=== PATIENT | male | born 1955 | race Caucasian/White ===

== ENCOUNTER → 2019-06-13 | Outpatient (CLI) | payer MEDICARE, OTHER, SELFPAY ==
[2013-05-30 17:30] VITALS: BMI 25.1
[2019-06-13 09:47] LABS: AUTO B FLUID DILUENT BKGD CT WBC <0.1 RBC <0.01 (W<.1,R<.01); Color / Synovial Fluid Yellow (Pale Yellow); Source / Synovial Fluid L KNEE; Viscosity / Synovial Fluid Sl. Viscous (HIGH)
[2019-06-13 09:48] LABS: Appearance /Synovial Fluid Sl Cl (CLEAR); RBC /Synovial Fluid 0.003 10^6/uL (0); Synovial Fld Mononuclear WBC # 0.575 10^3/ul; Synovial Fld Mononuclear WBC % 89.2 %; Synovial Fld Polynuclear WBC % 10.8 %
[2019-06-13 10:31] LABS: Lymph 38 %; Monocyte /Synovial Fluid 50 %; Neutrophil 11 % (0-25); Other Cell /Synovial Fluid 1 %
[2019-06-13 10:33] LABS: Body Fluid QC Type(s) BF1Q
[2019-06-14 12:20] LABS: Pathologist Comment Reviewed
== END | disposition home or self-care (01) ==
PROVIDERS: Family Provider Internal Medicine; PCP Internal Medicine; Referring Provider Specialist; Visit Provider Specialist
DX: Z96.652 Presence of left artificial knee joint (principal)
CPT/HCPCS: 87015; 87070; 87075; 87101; 87116; 87205; 87206; 89050; 89051

== ENCOUNTER 2019-07-24 08:07 | Inpatient (IN) | payer MEDICARE, OTHER, SELFPAY ==
[2019-07-05 11:09] VITALS: BP 137/90; PULSE 61; RESP 16; TEMP 36.2; O2SAT 99; BMI 25.0
--- NOTE | 2019-07-05 11:31 | SDCEKG_ITS ---
Test Reason : Blood Pressure : / mmHG Vent. Rate : 057 BPM Atrial Rate : 057 BPM P-R Int : 198 ms QRS Dur : 082 ms QT Int : 414 ms P-R-T Axes : 070 040 043 degrees QTc Int : 402 ms Sinus bradycardia Otherwise normal ECG Confirmed by CINTIA SANTORO, JAYNA ([id number]), website/blog editor JUAN HEATH ([id number]) on 07/08/2019 12:11:15 PM Referred By: Jeison Petit Confirmed By:JAYNA CHAMBERLAIN MD
[2019-07-05 11:42] LABS: Absolute Lymphocyte Count 0.99 X10^3/uL (0.83-4.51); Basophil# 0.03 X10^3/uL; Basophil% 0.4 % (0-1); Eosinophils% 2.9 % (0-5); Hematocrit 42.4 % (40-54); Hemoglobin 13.6 g/dL (13.0-16.5); Lymphocyte # 0.99 X10^3/ul (4.0); Lymphocyte % 14.5 % (19-41); Mean Corp Hgb Conc 32.1 g/dL (32-36); Mean Corpuscular Hgb 28.2 pg (27.0-32.0); Mean Corpuscular Volume 87.8 fL (80-94); Monocyte# 0.62 X10^3/uL; Monocyte% 9.1 % (0-10); NRBC Flagged by Analyzer 0 % (0-5); Neutrophil # 4.99 X10^3/uL (2.7-7.7); Neutrophil % 72.8 % (47-70); Platelet Count 240 K/mm3 (150-450); RBC Distribution Width CV 12.7 % (11.6-14.6); RBC Distribution Width SD 40.6 fl (35.1-43.9); Red Blood Count 4.83 M/mm3 (4.6-6.2); White Blood Count 6.9 K/mm3 (4.4-11.0)
[2019-07-05 12:12] LABS: Anion Gap 5 (5-15); BUN 16 mg/dL (7-18); BUN/Creat Ratio 17.8 RATIO (10-20); Calcium,Total 9.6 mg/dL (8.5-10.1); Chloride 107 mmol/L (98-107); EST Glomerular Filtration Rate 90 mL/min (>60); Est Glom Filt Rate - Afr Amer 108 mL/min (>60); Estimated Creatinine Clearance 88.62 ml/min; Glucose 92 mg/dL (74-106); Potassium 4.1 mmol/L (3.5-5.1); Sodium Level 139 mmol/L (136-145)
--- NOTE | 2019-07-05 13:10 | PCM.HP.BLA ---
History and Physical History and Physical [facility] Patient Name: Tim Frost : 1955 From: YESIKA ANGULO PA-C DATE OF SURGERY: 07/24/2019 SCHEDULED PROCEDURE: left knee polyethylene exchange HISTORY OF PRESENT ILLNESS: Preoperative history and physical exam was performed on July 05, 2019. This is a 64-year-old male who presents today for continued pain and preop visit. Patient has had a previous left total knee arthroplasty by Dr. Lázaro Moreno on November 19, 2018. He underwent a manipulation under anesthesia on February 11, 2019. Patient continues to complain of pain and stiffness in the left knee. He has continued to have a large amount of swelling. Patient denies any trauma or injury. Patient did have an aspiration which was negative for infection. After failing conservative measures and discussing treatment options with Dr. Jeison Petit, the patient does wish to proceed with a left knee revision polyethylene exchange with scar excision. Patient denies chest pain, shortness of breath, fevers chills, recent infections. He does have a medical history pertinent for previous heart attack in 2010 in which he underwent 2 stents. We are obtaining surgical clearance from the trestle mainternance laborer Dr. Hampton and primary care physician Dr. Tate. She also has underlying hypertension. REVIEW OF SYSTEMS: ROS: Const: Denies anorexia, anxiety, change in appetite, fever, difficulty sleeping, weight change. CV: Denies chest pain, heart murmur, irregular heartbeat and peripheral vascular disease. Resp: Denies asthma, cough, pneumonia, sleep apnea, shortness of breath, tuberculosis and wheezing. GI: Denies constipation, diarrhea, heartburn, nausea, rectal itching, bloody stools and vomiting. : Denies incontinence. Musculo: Reports pain and trouble walking, but denies leg swelling and weakness. Skin: Denies Raynaud's, history of shingles and tattoo. Neuro: Denies ambulatory dysfunction, dizziness, numbness/tingling and tremor. Psych: Denies anxiety, depression, insomnia, mental illness and stress. Harjinder/Lymph: Denies anemia, bleeding/bruising tendency and past transfusion. Reviewed, no changes. PAST MEDICAL HISTORY: Advance Care Plan: No Advance Directives Effective Date: 04/24/2018 PMH: Medical Problems: Hypercholesterolemia, High Blood Pressure, Heart Attack, Arthritis Accidents: Sports Related Injury - Dislocated R ankle Surgical Hx: Carpal Tunnel Release LT - 10/17/08 [facility] JAYJAY RT CTR - (04/10/2009) DR MORENO [facility] Knee Arthroscopy LT, Knee Arthroscopy RT LT TKR - (11/19/2018) JAYJAY @ [facility] LT Knee Manipulation - (02/11/2019) JAYJAY @ [facility] Anesthesia Complications: None Assistive Devices: Glasses Reviewed, no changes. SOCIAL HISTORY: SH: Marital: .Occupation: Retired.Work Status: Retired.Hand Dominance: Right-handed. Personal Habits: Smoking: Patient has never smoked.Cigarette Use: Never.Smokeless Tobacco: Never Used Smokeless Tobacco.E-Cigarette Use: Never used.Alcohol: Occasionally.Drug Use: Denies Use.Enjoy Exercising: Daily. Reviewed, no changes. VITALS: Ht: 72 Wt: 185lb Wt [id number] BMI: 25.1 BP: 131/82 Pulse: 64 Resp: 18 T: 96.7 T: 35.9C ALLERGIES: No Known Drug Allergy MEDICATIONS: Metoprolol Succinate ER 25 mg 1/2 tab PO daily, Simvastatin 20 mg 1/2 tab PO daily, Aspirin 81 Low Dose 81 mg 1po bid, Omeprazole 40 mg 1po qday, Lisinopril 5 mg 1 by mouth every day PRE-OP EXAM: General appearance:NORMAL Other: Eyes: Conjunctivae and lids: NORMAL Pupils: ERR Ears, Nose, Mouth, and Throat: NORMAL Other: Inspection of lips, teeth and gums: NORMAL Other: Neck: Examination of neck: no masses noted. Respiratory: Assessment of respiratory effort: NORMAL Other: Auscultation of lungs: clear to auscultation no wheezes, rhonchi or rales. Cardiovascular: Auscultation of heart: regular rate and rhythm, no murmurs, gallops or rubs. Exam of carotid arteries: NORMAL Other: Gastrointestinal: Exam of abdomen: soft, nontender, nondistended bowel sounds present. PHYSICAL EXAMINATION: Patient walks with an antalgic gait. Left knee previous incision is well healed without erythema or signs of infection. Patient has diffuse tenderness to palpation throughout the left knee. Range of motion left knee: 10 extension to 100 flexion. Stable to varus and valgus stress with 1 mm laxity on stress testing at 30 flexion both medially and laterally. Minimal anterior translation with anterior drawer testing. Moderate effusion. IMAGING STUDIES: Previous aspiration was negative for infection IMPRESSION: 1. Painful left total knee arthroplasty 2. Hypertension 3. Previous heart attack 2010 with heart stents 4. Hypercholesterolemia PLAN: Dr. Jeison Petit did discuss and review with the patient all treatment options including surgical versus nonsurgical options. Patient does wish to proceed with the above-stated procedure. Potential risks, benefits, and complications of the procedure were discussed in detail including but not limited to , infection, nerve and blood vessel damage, persistent pain, numbness, tingling, paresthesias, blood clot, pulmonary embolism, and requirement for possible further surgery. The patient expressed full understanding and has no further questions for the doctor. Patient does agree to proceed with the above-stated procedure and has signed the surgery consent form. This dictation was created using voice recognition software. Phonetic and/or grammatical errors may exist. ___ I have re-examined the patient. There are no clinical changes since date of exam. ___ See progress notes for changes. ___ Dictated on admission Date: Time: Signature:
[2019-07-24] VITALS (11 sets, daily range): BP systolic 106–137; BP diastolic 56–90; PULSE 60–88; RESP 16–18; TEMP 35.6–36.3; O2SAT 94–100; BMI 25.0
--- NOTE | 2019-07-24 07:20 | RAD_ITS ---
STUDY: X-RAY - LEFT KNEE REASON FOR EXAM: Postoperative total knee arthroplasty. TECHNIQUE: 2 view(s) of the knee. COMPARISON: None. FINDINGS: There is a left total knee arthroplasty without evidence of complication. There is postoperative gas in the soft tissues and overlying skin harshad. RAD/Knee 1 or 2 Views IMPRESSION: Uncomplicated total left knee arthroplasty. Electronically Signed: Marshal Sinha MD at 15:31 EST Tel , Service support ,
[2019-07-24] MEDS: Gabapentin 600 MG Tablet PO (08:15)
[2019-07-24 08:31] LABS: Bedside Glucose 85 mg/dL (70-110)
[2019-07-24] MEDS: Lactated Ringers 1,000 ML 100 ML IV (08:45)
[2019-07-24] MEDS: Celecoxib 200 MG Capsule 400 MG PO (08:46)
[2019-07-24] MEDS: Scopolamine 1mg/72hr Patch 1 PATCH TRANSDERM. (08:46)
[2019-07-24] MEDS: Acetaminophen 500 MG Tablet 1000 MG PO ×3 (08:46→22:06)
[2019-07-24] MEDS: Magnesium Sulfate 4gm/100mL 4 GM/100 ML IV.SOLN. IV (09:00)
[2019-07-24] MEDS: Cefazolin 2 GM in 0.9% Normal Saline 100 ML IV (12:07)
--- NOTE | 2019-07-24 12:35 | OP.PCM_ITS ---
Report of Operation Date of Procedure: 07/24/19 Pre-Operative Diagnosis: Painful left total knee, arthrofibrosis Post-Operative Diagnosis: Painful left total knee, arthrofibrosis Surgery/Procedure Performed:: Revision left total knee replacement, polyethylene exchange, complete synovectomy and quadricepsplasty. Description of Surgical Findings:: Stable knee. Knee flexion to was 125 intraoperatively. Patient does have some patella [place]. clay carman: Jduson Gonzalez Type of Anesthesia:: Spinal Anesthesiologist: Sivakumar Sutton Special Medications: 2 g Ancef after incision, joint cocktail (5 mg Duramorph, 30 mL of 0.5% Ropivicaine, 1000 units of epinephrine, 30 mg of Toradol). TXA lavage prior to closure. Specimen's removed: 3 separate specimens were sent to microbiology. Estimated Blood Loss (mL): 75 Fluids Replaced: 1200 mL crystalloid Description of Procedure: 64 yo M history of L TKA in 2018 presents with arthrofibrosis and pain. Reviewed options were discussed the patient. Based on patient's symptoms and loss of range of motion complete synovial debridement with polyethylene exchange is recommended. Risks and benefits of the procedure were discussed with the patient including but not limited to blood loss, DVTs, PEs, neurovascular damage, infection, general risk of anesthesia including loss of life. Demonstrated understanding and was able to sign informed consent. On the date of procedure patient's L lower extremity was marked in the preoperative area. The patient was then taken back to the operating room where the patient was placed on the table in the supine position. All bony prominences were identified a well-padded. Anesthesia assumed control of the C-spine and airway and remained controlled throughout the remainder of the procedure. A tourniquet was placed on the operative thigh and the leg was prepped in a sterile fashion. The surgeon then scrubbed at this time .Upon reentering the room left lower extremity was draped in a standard orthopedic fashion. A timeout was then called and everyone agreed upon the side, the site, the procedure to be performed, patient's identity and antibiotics given. A midline skin incision was made and sharp dissection was taken down through skin subcutaneous tissue and fat. Appropriate flaps were elevated medially and laterally. His arthrotomy was identified and the standard medial parapatellar incision was made and the patella was subluxed laterally. The standard deep MCL release was done. At this point an aggressive synovectomy commenced. At this point the knee was flexed up and he had limited range of motion. A Farmer was used to make a quadriceps plasty of the anterior femur. Once this was done we gained another 20 degrees of flexion. We continued with our aggressive synovectomy. Our attention was first turned towards the subpatellar pouch and all suspicious synovium and tissues were debrided. We then directed our attention towards medial lateral gutters were these tissues were aggressively debrided. Knee was then flexed up the polyethylene was removed. Once polyethylene was removed we did the remainder of the synovium in the medial and lateral gutters and along the lateral structures and MCL. We then debrided the posterior knee. Knee was flexed up and culture was taken from the femoral notch. And also there was a membrane beneath the tibial baseplate that was removed and sent for culture. He had completed our synovectomy and were happy with the joint. Once we are happy with this we then trialed the polyethylene components. Medially the size 6 fit well. Laterally we downsized to a be from the C. Tourniquet was let down and hemostasis was obtained. 6 L of normal saline were then irrigated throughout the wound with low-pressure lavage and the wound was once again explored. All remaining tissue that was suspicious was seen in the wound was once again irrigated with normal saline. The appropriate polyethylenes were then opened and put back into place after appropriate trialing. Once the final components were placed the wound was copiously irrigated with normal saline solution and chlorhexidine. TXA lavage was also performed. The wound was closed in a layer colunga fashion using #1 vicryl interrupted sutures for the arthrotomy, 2-0 interrupted Vicryl for the subcuticular layer and harshad for final skin closure. A sterile compressive dressing was then placed. The patient was then awakened from anesthesia, transferred to the [facility] and transferred to the PACU for recovery. Post op plan Range of motion as tolerated, activity as tolerated. Patient will be on doxycycline for 1 week as we follow cultures. Patient will be on Singulair for 90 days to help decrease scar tissue. Grafts/Implants Used: Conformis I total: Medial, 6 mm, lateral B - Complications No intraoperative complications - Admit VTE Documentation VTE Present on Admission: No VTE Mechan Device Prophylaxis: SCD's, Thigh High MAL Hose VTE Pharm Prophylaxis ordered?: Yes
[2019-07-24] MEDS: Lactated Ringers 1,000 ML 999 ML IV (13:12)
[2019-07-24] MEDS: Lactated Ringers 1,000 ML 125 ML IV ×2 (14:03→22:01)
[2019-07-24] MEDS: Montelukast 10 MG Tablet PO (16:41)
[2019-07-24] MEDS: Aspirin 81 MG TAB.CHEW PO (16:41)
[2019-07-24] MEDS: Ensure Surgery 237 ML LIQUID PO (16:41)
[2019-07-24] MEDS: Ketorolac 15 MG/ML Vial IV (20:35)
[2019-07-24] MEDS: Cefazolin 1 GM/50 ML BAG IV (20:35)
[2019-07-24] MEDS: Atorvastatin Calcium 10 MG Tablet 5 MG PO (22:05)
[2019-07-24] MEDS: Doxycycline 100 MG CAPSULE PO (22:05)
[2019-07-24] MEDS: Senna/Docusate Sodium 1 Tablet 2 TABLET PO (22:06)
[2019-07-24] MEDS: Lisinopril 5 MG Tablet PO (22:07)
[2019-07-25 00:30] VITALS: BP 108/66; PULSE 64; RESP 16; TEMP 36.4; O2SAT 94
[2019-07-25] MEDS: Ketorolac 15 MG/ML Vial IV (04:32)
[2019-07-25] MEDS: Cefazolin 1 GM/50 ML BAG IV (04:33)
[2019-07-25 04:38] VITALS: BP 115/69; PULSE 60; RESP 18; TEMP 36.4; O2SAT 95
[2019-07-25 05:50] LABS: Hematocrit 33.7 % (40-54); Hemoglobin 10.8 g/dL (13.0-16.5); Mean Corpuscular Hgb 27.9 pg (27.0-32.0); Mean Corpuscular Volume 87.1 fL (80-94); Mean Platelet Vol. 9.8 fl (6.2-12.0); Platelet Count 200 K/mm3 (150-450); RBC Distribution Width CV 13.2 % (11.6-14.6); RBC Distribution Width SD 41.3 fl (35.1-43.9); Red Blood Count 3.87 M/mm3 (4.6-6.2); White Blood Count 9.8 K/mm3 (4.4-11.0)
[2019-07-25 05:56] LABS: Anion Gap 4 (5-15); BUN 14 mg/dL (7-18); BUN/Creat Ratio 13.2 RATIO (10-20); Calcium,Total 8.7 mg/dL (8.5-10.1); Chloride 108 mmol/L (98-107); Creatinine, Serum 1.06 mg/dL (0.70-1.30); EST Glomerular Filtration Rate 74 mL/min (>60); Est Glom Filt Rate - Afr Amer 90 mL/min (>60); Estimated Creatinine Clearance 75.24 ml/min; Glucose 130 mg/dL (74-106); Potassium 4.2 mmol/L (3.5-5.1); Sodium Level 138 mmol/L (136-145)
[2019-07-25] MEDS: Acetaminophen 500 MG Tablet 1000 MG PO ×2 (06:36→13:11)
[2019-07-25] MEDS: 0.9% Saline Lock 10 ML Syringe IV (06:40)
[2019-07-25 07:25] VITALS: O2SAT 96
[2019-07-25] MEDS: oxyCODONE 5 MG Tablet PO (07:37)
[2019-07-25] MEDS: Aspirin 81 MG TAB.CHEW PO (08:54)
[2019-07-25] MEDS: Ensure Surgery 237 ML LIQUID PO ×2 (08:54→11:22)
[2019-07-25] MEDS: Famotidine 20 MG Tablet PO (08:55)
[2019-07-25] MEDS: Pantoprazole Sodium 40 MG Tablet PO (08:55)
[2019-07-25] MEDS: Doxycycline 100 MG CAPSULE PO (08:55)
[2019-07-25] MEDS: Senna/Docusate Sodium 1 Tablet 2 TABLET PO (08:56)
[2019-07-25 08:59] VITALS: PULSE 51
[2019-07-25] MEDS: Metoprolol(XL)Succ 25 MG Tablet 12.5 MG PO (08:59)
[2019-07-25 09:03] VITALS: BP 115/78; PULSE 51; RESP 18; TEMP 36.7; O2SAT 98
--- NOTE | 2019-07-25 09:20 | PN.ORTHO_ITS ---
Subjective: The patient was sitting in bedside chair upon examination. Patient denies any chest pain, shortness of breath, dizziness, lightheadedness, nausea or vomiting, or calf pain. Pain is controlled on medications. No adverse overnight events. Overall patient is doing very well. Patient is not complaining of significant pain. However he did have a block postoperatively. He has tolerated occupational therapy very well. Objective: Vital signs stable and afebrile. Patient is able to plantarflex and dorsiflex actively. Sensation is intact to light touch to saphenous, sural, superficial and deep peroneal, and tibial distribution. Dressing is clean dry and intact. Negative Homans bilaterally, negative signs and symptoms of DVT. - Physical Exam Vitals/I&O's: Vital Signs Temp Pulse Resp BP Pulse Ox 98.1 F 51 L 18 115/78 98 07/25/19 09:03 07/25/19 09:03 07/25/19 09:03 07/25/19 09:03 07/25/19 09:03 Oxygen Flow Rate (L/min) 6 Oxygen Delivery Method Room Air Weight: 83.9 kg Body Mass Index (BMI) 25.0 Intake and Output for Last 24 Hours 07/23/19 07/24/19 07/25/19 23:59 23:59 23:59 Intake Total 3875.83 / 4325.83 1849 Output Total 850 / 850 Balance 3025.83 / 3475.83 1849 General: Alert, Oriented x3, Cooperative, No apparent distress Microbiology Past 72 Hours 07/24/19 12:40 Tissue - Knee Gram Stain - Final 07/24/19 12:40 Tissue - Knee Gram Stain - Final 07/24/19 12:40 Tissue - Knee Gram Stain - Final Laboratory Results 07/25/19 05:10: WBC 9.8, RBC 3.87 L, Hgb 10.8 L, Hct 33.7 L, MCV 87.1, MCH 27.9, MCHC 32.0, RDW Std Deviation 41.3, RDW Coeff of Brian 13.2, Plt Count 200, MPV 9.8 07/25/19 05:10: Sodium 138, Potassium 4.2, Chloride 108 H, Carbon Dioxide 26.0, Anion Gap 4 L, BUN 14, Creatinine 1.06, Estim Creat Clear Calc 75.24, Est GFR (MDRD) Af Amer 90, Est GFR (MDRD) Non-Af 74, BUN/Creatinine Ratio 13.2, Glucose 130 H, Calcium 8.7 Current Medications Acetaminophen (Tylenol) 1,000 mg PO Q8 [facility] Last Admin: 07/25/19 06:36 Dose: 1,000 mg Documented by: Aspirin (Aspirin, Baby) 81 mg PO BIDCM [facility] Last Admin: 07/25/19 08:54 Dose: 81 mg Documented by: Atorvastatin Calcium (Lipitor) 5 mg PO QHS [facility] Last Admin: 07/24/19 22:05 Dose: 5 mg Documented by: Doxycycline Monohydrate (Doxycycline) 100 mg PO BID [facility] Last Admin: 07/25/19 08:55 Dose: 100 mg Documented by: Enteral Nutritional Formula (Ensure Surgery) 237 ml PO TIDCM [facility] Last Admin: 07/25/19 08:54 Dose: 237 ml Documented by: Famotidine (Pepcid) 20 mg PO DAILY [facility] Last Admin: 07/25/19 08:55 Dose: 20 mg Documented by: Sodium Chloride () 250 mls @ 15 mls/hr IV .[id number] PRN PRN Reason: Saline Flush Ketorolac Tromethamine (Toradol (Bkc)) 15 mg IV Q6H PRN PRN PRN Reason: Pain Score 1-5/10 Last Admin: 07/25/19 04:32 Dose: 15 mg Documented by: Lisinopril (Zestril) 5 mg PO QHS [facility] Last Admin: 07/24/19 22:07 Dose: 5 mg Documented by: Meloxicam (Mobic) 7.5 mg PO BID [facility] Metoprolol Succinate (Toprol Xl (Beta Osiris)) 12.5 mg PO DAILY [facility] Last Admin: 07/25/19 08:59 Dose: 12.5 mg Documented by: Montelukast Sodium (Singulair) 10 mg PO DAILY@1700 [facility] Last Admin: 07/24/19 16:41 Dose: 10 mg Documented by: Morphine Sulfate () 2 - 4 mg IV Q2H PRN PRN PRN Reason: Pain Score 6-10/10 Morphine Sulfate () 2 - 4 mg IV Q2H PRN PRN PRN Reason: Pain Score 6-10/10 Ondansetron HCl (Zofran) 4 mg IV Q8H PRN PRN PRN Reason: NAUSEA Oxycodone HCl (Oxyir) 5 - 10 mg PO Q4H PRN PRN PRN Reason: Pain Score 4-10/10 Last Admin: 07/25/19 07:37 Dose: 5 mg Documented by: Pantoprazole Sodium (Protonix) 40 mg PO DAILY [facility] Last Admin: 07/25/19 08:55 Dose: 40 mg Documented by: Promethazine HCl (Phenergan) 12.5 mg IM Q6H PRN PRN; Protocol PRN Reason: NAUSEA/VOMITING Senna/Docusate Sodium (Senokot-S, Suzanne-Colace) 2 tablet PO BID [facility] Last Admin: 07/25/19 08:56 Dose: 2 tablet Documented by: Sodium Chloride () 10 - 40 ml IV UD PRN PRN Reason: SALINE FLUSH Last Admin: 07/25/19 06:40 Dose: 10 ml Documented by: Medical Necessity - Tobacco Use Smoking Status: Never smoker Tobacco Use: Non-smoker Assessment/Plan 1. S/P left knee revision polyethylene exchange POD #1 2. Continue Pain Medications: Tylenol and OxyIR 3. DVT Prophylaxis: Aspirin 81 mg twice daily for 4 weeks postoperatively 4. PT/OT: Weightbearing as tolerated 5. H & H: 10.8/33.7, asymptomatic 6. Encouraged Incentive Spirometry 7. Continue antibiotics while following cultures: Currently pending. Patient currently on doxycycline 8. Disposition: Plan will be for discharge home today as long as pain is well controlled and patient tolerates physical therapy. Prescriptions will be E sc ribed to [facility]. Patient will follow-up per postop instructions. Outpatient physical therapy has been established. I have reviewed the [place] Automated Rx Reporting System (OARRS) report for this patient for refill pattern and other prescriber involvement as part of the appropriate surveillance for the provision of acute and chronic controlled medications. The report was requested and reviewed on the date of this entry and was considered in the prescribing process.
--- NOTE | 2019-07-25 09:35 | PCM.DC.TKR ---
Discharge Diet: No Restrictions Discharge Activity: May Not Drive May shower in (days): 2 Ice area for (Minutes): 20 - Every 1-2 hours while awake Weight Bearing Status: Weight bearing as tolerated Elevate: Operative Extremity Additional Activity Instructions:: Wear elastic stockings for 2 weeks after your surgery. Call your doctor if your incision/area has: Continuous Slow Oozing, Sudden Increased Bleeding, Increased Pain/ Swelling, Increased Redness, Foul Smelling Discharge Call your doctor if you observe: Fever of 101 or Higher, Coldness, Increased Pain, Numbness or Tingling, Change in Color, Calf discomfort, Uncontrolled pain Remove Dressing in (days):: 4 - Okay to remove dressing on July 29, 2019 Additional Instructions: Dressing: Okay to remove dressing after [address] any ointments, Neosporin, triple antibiotic ointment, alcohol pads on incision for 6 weeks postoperatively. Do not submerge incision underwater for 4 weeks postoperatively. Constipation continue with senna until first bowel movement, if having continued constipation after 2 to 3 days can switch over to magnesium citrate. Allergies/Adverse Reactions: Allergies No Known Allergies Allergy (Verified 07/24/19 08:23) Medications to take at Discharge Simvastatin [Zocor] 10 mg PO QHS 05/30/13 Lisinopril [Prinivil] 5 mg PO QHS 07/05/19 Omeprazole 40 mg PO DAILY 07/05/19 Metoprolol(XL)Succ [Toprol Xl (Beta Osiris)] 12.5 mg PO DAILY 07/24/19 Acetaminophen [Tylenol] 1,000 mg PO Q8 #100 tab 07/25/19 Aspirin [Aspirin, Baby] 81 mg PO BIDCM tab 07/25/19 Doxycycline 100 mg PO BID #12 cap 07/25/19 Meloxicam [Mobic] 7.5 mg PO BID #60 tab 07/25/19 Montelukast [Singulair] 10 mg PO DAILY@1700 #30 tab 07/25/19 Oxycodone [Oxyir] 5 - 10 mg PO Q4H PRN PRN 5 Days #60 tablet 07/25/19 Senna/Docusate Sodium [Senokot-S] 2 tab PO BID #14 tab 07/25/19 The following prescriptions were given: Doxycycline 100 mg PO BID #12 cap Transmission Status: Pending to [facility] Meloxicam [Mobic] 7.5 mg PO BID #60 tab Transmission Status: Pending to [facility] Oxycodone [Oxyir] 5 - 10 mg PO Q4H PRN PRN 5 Days #60 tablet PRN Reason: Pain Score 4-10/10 Transmission Status: Sent to [facility] Senna/Docusate Sodium [Senokot-S] 2 tab PO BID #14 tab Transmission Status: Pending to [facility] Montelukast [Singulair] 10 mg PO DAILY@1700 #30 tab Transmission Status: Pending to [facility] Acetaminophen [Tylenol] 1,000 mg PO Q8 #100 tab Transmission Status: Pending to [facility] Primary Care Physician: Jose Tate [Primary Care Provider] - Test Results: Test results from this visit will be discussed in further detail at your follow-up appointment, if applicable. Please Follow Up With: Physical Therapy When: 07/29/19 Please Follow Up With: Paul Urrutia PA-C When: 08/07/19 @ 9:15 am
--- NOTE | 2019-07-25 09:45 | CASEMGMT ---
FAISAL HA Face to Face with patient for initial transition planning/care coordination assessment. RN DILCIA introduced self and role at [facility]. Patient sitting in chair, alert and oriented. Patient willing to participate in assessment and is able to answer all questions appropriately. Care providers, pharmacy, and demographics verified. Patient wishes to discharge home and is setup at [facility]. Patient states he has no further needs or concerns at this time. CM to follow for discharge planning needs that may arise. PCP: Bebeto Specialists: [facility] Preferred Pharmacy: [facility] Insurance: [facility] Prescription Benefit: yes Living Will/HPOA: none, SW information given to setup appt LNOK: daughters Living Arrangements: Patient lives alone in 1 story home. Patient independent at home prior to surgery. Transportation: daughter DME/HHC: Patient has walker, cane, and raised toilet. Patient is setup for outpatient therapy at [facility] in [place] for Monday Disposition Plan: Patient to discharge home with outpatient therapy, family support, and follow-up plans in place. Danika VEGA, RN, CM
== END 2019-07-25 14:00 | disposition home or self-care (01) | DRG 489 ==
LOC: ACINP 08:11 → MS3 09:31
PROVIDERS: Admitting Provider Specialist; Family Provider Internal Medicine; PCP Internal Medicine; Referring Provider Specialist; Visit Provider Specialist
PROC: 0SBD0ZZ Excision of Left Knee Joint, Open Approach (ICD-10-PCS; CPT 27487; principal; 2019-07-24 09:55)
DX: T84.84XA Pain due to internal orthopedic prosthetic devices, implants and grafts, initial encounter (principal); T84.82XA Fibrosis due to internal orthopedic prosthetic devices, implants and grafts, initial encounter; Z96.652 Presence of left artificial knee joint; I10 Essential (primary) hypertension; Z95.5 Presence of coronary angioplasty implant and graft; I25.2 Old myocardial infarction; E78.00 Pure hypercholesterolemia, unspecified; Y83.1 Surgical operation with implant of artificial internal device as the cause of abnormal reaction of the patient, or of later complication, without mention of misadventure at the time of the procedure
CPT/HCPCS: 36415; 73560; 80048; 82962; 85025; 85027; 87015; 87070; 87075; 87081; 87102; 87116; 87176; 87205; 87206; 93005; 97110; 97116; 97162; 97166; 97530; 99251; C1776; J7120; A4216; G0463; J2405